=== PATIENT | male | born 1970 ===

== ENCOUNTER 2018-11-21 14:20 | Outpatient (CLI) | payer OTHER ==
[2018-11-21 14:31] LABS: MEAN CORPUSCULAR HEMOGLOBIN 32.2 pg (28.0-34.0)
[2018-11-21 14:32] LABS: BASOPHILS % 0.8 (0.0-1.5); EOSINOPHILS % 5.1 % (0.0-6.8); MONOCYTES % 7.6 % (0.0-11.0); NEUTROPHILS # 6.1 # k/uL (1.4-7.7)
[2018-11-21 18:56] LABS: eGFR (Non-African) > 60
== END 2018-11-21 14:22 ==
LOC: LAB 14:20
PROVIDERS: ATTEND General Practice
DX: R10.9 Unspecified abdominal pain (principal); R31.9 Hematuria, unspecified
CPT/HCPCS: 36415; 80053; 85025